=== PATIENT | female | born 1935 | race Asian ===

== ENCOUNTER 2018-02-01 20:33 | Emergency (ER) | payer MEDICARE, OTHER ==
[~2018-02-01] VITALS: Ht 162.6 cm; Wt 62.1 kg
[~2018-02-01 20:33] MED LIST: AMLODIPINE5 M1 PO; CIPROFLOXACIN500 MG PO; COZAAR50 MG PO; FLA500 PO; GOOD SENSE ASPI81 M3 PO; LAC PO; LEVAQUIN750 MG PO; METOCLOPRAMIDE5 M1; METP PO; MULTI-VITAMINS1 TAB PO; NOR10T PO; PRILOSEC20 MG PO; SIMVASTATIN10 M1 PO; VITAMIN D32000 I2
[2018-02-01 20:39] VITALS: Ht 162.6 cm; Wt 62.1 kg
[2018-02-01 21:44] LABS: PLATELET COUNT 187 x10^3mcL (130-400); RED CELL DISTRIBUTION WIDTH 13.5 % (11.5-14.5)
[2018-02-01 21:47] LABS: BASOPHIL % 0 % (0-2)
[2018-02-01 21:56] LABS: CALCIUM 8.7 mg/dL (8.5-10.1); CARBON DIOXIDE 24.4 mmol/L (21-32); CHLORIDE SERUM 106 mmol/L (98-107); GLUCOSE SERUM 128 mg/dL (74-106); POTASSIUM SERUM 3.7 mmol/L (3.5-5.1); SODIUM SERUM 141 mmol/L (136-145)
[2018-02-01 21:58] LABS: ALBUMIN 3.6 g/dL (3.4-5.0); ALKALINE PHOSPHATASE 87 U/L (46-116); ALT/SGPT 28 U/L (14-59); AST/SGOT 20 U/L (15-37); BILIRUBIN TOTAL 0.41 mg/dL (0.20-1.00); TOTAL PROTEIN, SERUM 7.7 g/dL (6.4-8.2)
[2018-02-01 22:20] LABS: CK-MB < 0.5 ng/mL (0-3.6); CREATINE KINASE 142 U/L (26-192)
[2018-02-01 22:56] VITALS: BP 126/57
== END 2018-02-01 22:56 | disposition home or self-care (01) ==
LOC: ED 20:33
PROVIDERS: Emergency Medicine
DX: J20.9 Acute bronchitis, unspecified (principal); I10 Essential (primary) hypertension; E78.00 Pure hypercholesterolemia, unspecified; R11.0 Nausea
CPT/HCPCS: 83880; J2405; J7030; Q0092

== ENCOUNTER 2018-02-05 17:32 | Inpatient (IN) | payer OTHER, MEDICARE ==
[~2018-02-05] VITALS: Ht 165.1 cm; Wt 64.5 kg
[~2018-02-05 17:32] MED LIST changes: +COZAAR100 MG PO; -COZAAR50 MG PO; +PRILOSEC OTC20 M1 PO; -PRILOSEC20 MG PO
[2018-02-05 18:35] LABS: BASOPHIL % 0.1 % (0-2); PLATELET COUNT 211 x10^3mcL (130-400); RED CELL DISTRIBUTION WIDTH 13.9 % (11.5-14.5)
[2018-02-05 18:47] LABS: CALCIUM 8.9 mg/dL (8.5-10.1); CARBON DIOXIDE 25.2 mmol/L (21-32); CHLORIDE SERUM 104 mmol/L (98-107); CREATININE SERUM 1.1 mg/dL (0.6-1.0); GLUCOSE SERUM 107 mg/dL (74-106); POTASSIUM SERUM 3.3 mmol/L (3.5-5.1); SODIUM SERUM 140 mmol/L (136-145)
[2018-02-05 18:52] LABS: ALBUMIN 3.5 g/dL (3.4-5.0); ALKALINE PHOSPHATASE 93 U/L (46-116); ALT/SGPT 23 U/L (14-59); AST/SGOT 18 U/L (15-37); BILIRUBIN TOTAL 0.39 mg/dL (0.20-1.00)
[2018-02-05 20:29] LABS: CHOLESTEROL/HDL RATIO 4.1; PHOSPHOROUS 2.9 mg/dL (2.5-4.9)
[2018-02-05 20:39] LABS: FREE T4 1.72 ng/dL (0.76-1.46)
[2018-02-05 20:45] LABS: T4(THYROXINE) 14.2 ug/dL (4.7-13.3)
[2018-02-05 20:50] LABS: T3 TOTAL 1.03 ng/mL
[2018-02-05] MEDS ORDERED: NOR10 PO (21:06)
[2018-02-05 21:45] VITALS: BP 135/54
[2018-02-05 21:54] VITALS: Ht 165.1 cm; Wt 64.5 kg
[2018-02-05 22:11] LABS: microscopic required? YES; urine erythrocyte TRACE (NEGATIVE)
[2018-02-05 22:36] LABS: AMPHETAMINE QUAL UR NONE DETECTED (See below)
[2018-02-06 03:14] LABS: BASOPHIL % 0.3 % (0-2); PLATELET COUNT 207 x10^3mcL (130-400); RED CELL DISTRIBUTION WIDTH 12.9 % (11.5-14.5)
[2018-02-06 03:24] LABS: CALCIUM 8.2 mg/dL (8.5-10.1); CARBON DIOXIDE 24.7 mmol/L (21-32); CHLORIDE SERUM 108 mmol/L (98-107); CREATININE SERUM 1.1 mg/dL (0.6-1.0); GLUCOSE SERUM 107 mg/dL (74-106); POTASSIUM SERUM 4.3 mmol/L (3.5-5.1); SODIUM SERUM 142 mmol/L (136-145)
[2018-02-06] MEDS ORDERED: SYNTHROID0.112 MG PO (05:03)
[2018-02-06 05:58] VITALS: BP 109/52
[2018-02-06 10:10] VITALS: BP 115/47
[2018-02-06 13:05] VITALS: BP 126/55
[2018-02-06 17:05] VITALS: BP 119/50
[2018-02-06 20:20] VITALS: BP 134/59
[2018-02-07 05:34] VITALS: BP 135/56
[2018-02-07 06:38] LABS: CALCIUM 8.8 mg/dL (8.5-10.1); CARBON DIOXIDE 25.2 mmol/L (21-32); CHLORIDE SERUM 107 mmol/L (98-107); CREATININE SERUM 1.2 mg/dL (0.6-1.0); GLUCOSE SERUM 94 mg/dL (74-106); MAGNESIUM 2.1 mg/dL (1.8-2.4); PHOSPHOROUS 4.1 mg/dL (2.5-4.9); POTASSIUM SERUM 4.3 mmol/L (3.5-5.1); SODIUM SERUM 139 mmol/L (136-145)
[2018-02-07 06:39] LABS: BASOPHIL % 0.5 % (0-2); PLATELET COUNT 195 x10^3mcL (130-400); RED CELL DISTRIBUTION WIDTH 14.1 % (11.5-14.5)
[2018-02-07 09:31] VITALS: BP 92/56
[2018-02-07] MEDS ORDERED: VENTOLIN H0.09 MG/A1 INH (09:43)
[2018-02-07] MEDS ORDERED: TES100 PO (09:43)
[2018-02-07] MEDS ORDERED: MEDDP PO (09:44)
[2018-02-07] MEDS ORDERED: LEVAQUIN750 MG PO (09:58)
[2018-02-07] MEDS ORDERED: CLEOCIN HCL300 MG PO (10:02)
[2018-02-07 12:29] VITALS: BP 125/51
[2018-02-07 16:35] VITALS: BP 122/51
[2018-02-07] MEDS ORDERED: SYN1 PO (17:02)
[2018-02-07 17:49] VITALS: BP 122/51
== END 2018-02-07 19:56 | disposition home or self-care (01) | DRG 137 ==
LOC: ED 17:32 → DU 19:41
PROVIDERS: Emergency Medicine; Family Medicine
DX: J69.0 Pneumonitis due to inhalation of food and vomit (principal); N17.0 Acute kidney failure with tubular necrosis; I10 Essential (primary) hypertension; E03.9 Hypothyroidism, unspecified; E78.00 Pure hypercholesterolemia, unspecified; K21.9 Gastro-esophageal reflux disease without esophagitis; E87.6 Hypokalemia; Z53.29 Procedure and treatment not carried out because of patient's decision for other reasons; Z79.899 Other long term (current) drug therapy; Z90.89 Acquired absence of other organs
CPT/HCPCS: 83880; 84439; 97110-GP; 97116-GP; 97530-GP; J1956; J2920; J3490; J7030; J7040; J7613; J7620; J7626; J7644

== ENCOUNTER 2019-04-28 19:55 | Emergency (ER) | payer MEDICARE, OTHER ==
[~2019-04-28] VITALS: Ht 154.9 cm; Wt 61.7 kg
[~2019-04-28 19:55] MED LIST changes: +CLEOCIN HCL300 MG PO; +MEDDP PO; +NOR10 PO; +SYN1 PO; +SYNTHROID0.112 MG PO; +TES100 PO; +VENTOLIN H0.09 MG/A1 INH
[2019-04-28 20:17] VITALS: Ht 154.9 cm; Wt 61.7 kg
[2019-04-28 22:02] VITALS: BP 134/64
== END 2019-04-28 22:02 | disposition home or self-care (01) ==
LOC: ED 19:55
DX: J18.9 Pneumonia, unspecified organism (principal); J40 Bronchitis, not specified as acute or chronic; I10 Essential (primary) hypertension; K21.9 Gastro-esophageal reflux disease without esophagitis; E78.00 Pure hypercholesterolemia, unspecified; Z85.850 Personal history of malignant neoplasm of thyroid